=== PATIENT | male | born 1960 | race Caucasian/White ===

== ENCOUNTER 2016-12-21 11:20 | Emergency (ER) | payer SELFPAY ==
[2016-12-21] MEDS ORDERED: 0.9 % SODIUM CHLORIDE 1,000 ML IV ONE (12:12)
[2016-12-21] MEDS: 0.9 % SODIUM CHLORIDE 1,000 ML IV SCH (12:15)
[2016-12-21] MEDS: ONDANSETRON HCL/PF 4 MG/ 2ML VIAL IVP ONE (12:16)
[2016-12-21 12:21] LABS: MEAN CORPUSCULAR HEMOGLOBIN 30.7 pg (28.0-34.0); MEAN CORPUSCULAR VOLUME 92.6 fl (80.0-100.0)
[2016-12-21] MEDS: PANTOPRAZOLE SODIUM 40 MG in 0.9 % SODIUM CHLORIDE 50 ML IV ONE (12:25)
[2016-12-21] MEDS: HYOSCYAMINE SULFATE 0.125 MG TAB.SUBL SL ONE (12:28)
[2016-12-21 12:40] LABS: eGFR (African) > 60; eGFR (Non-African) > 60
[2016-12-21 12:41] LABS: BASOPHILS % 1 % (0-2); EOSINOPHILS % 7 % (0-7); MONOCYTES % 8 % (0-11); SEGMENTED NEUTROPHILS % 42 % (39-79)
[2016-12-21] MEDS: METOCLOPRAMIDE HCL 5 MG TABLET PO ONE (12:46)
[2016-12-21 15:34] VITALS: BP 120/85
--- NOTE | 2016-12-21 16:42 | Diagnostic Imaging Report ---
SKYLAR KEITA [facility] [address] [facility] [address] [place], [place]. [address] Report Submission Date: Dec 21, 2016 2:59:42 PM CDT Patient Study Name: JULIANA REAGAN Date: Dec 21, 2016 2:33:33 PM CDT Modality Type: CT\SR Gender: M Description: CT ABD & PELVIS W/O CO : 62 Institution: [facility] Physician: SKYLAR KEITA Examination: CT Abdomen/pelvis History: Abdominal discomfort Comparison exams: None available Technique: CT Abdomen/pelvis without contrast protocol. Findings: Liver, spleen, adrenal glands, kidneys, pancreas and gallbladder are without irregularity. Kidneys and ureters are without suspicious calcification. Abdominal aorta with mild peripheral atherosclerotic disease. Bowel without abnormal dilation. No evidence for acute mesenteric inflammation or free air. Sigmoid diverticuli. No adjacent inflammation. No gastroesophageal region inflammatory changes. Osseous structures demonstrate degenerative changes. Lung bases without infiltrate. Impression: No evidence for abdominal mass or inflammatory process given technique. No gastroesophageal region inflammation. Sigmoid diverticulosis. No evidence for diverticulitis. Electronically signed on Dec 21, 2016 2:59:42 PM CDT by: Morro CHRISTIANSON
--- NOTE | 2016-12-22 01:22 | ED Physician Documentation ---
General Adult - HISTORIAN Historian: patient - HPI Stated Complaint: Choked on food Chief Complaint: General Adult Additional Information: eating prok sausage and got stuck in distal esophagus Onset: hours (1) Timing: still present Severity: moderate Modifying Factors: happened before Context: eating Quality: very uncomfortable Location: distal esophagus Further Comments: no - ROS CONST: no problems EYES/ENT: none CVS/RESP: denies: chest pain, shortness of breath, cough GI/: abdominal pain, vomiting, other (cannot keep any intake down) MS/SKIN/LYMPH: none NEURO/PSYCH: denies: headache, fainting, dizziness, tingling, numbness, difficulty walking, difficulty with speech, anxiety, depression - PAST HX Past History: none Other History: none Surgeries/Procedures: none Immunizations: referred to PCP Allergies/Adverse Reactions: Allergies Allergy/AdvReac Type Severity Reaction Status Date / Time No Known Allergies Allergy Unverified 12/21/16 11:35 Home Medications: Ambulatory Orders Medication Instructions Recorded Albuterol Sulfate [Albuterol 7 gm IH PRN 08/19/12 Sulfate Hfa] - SOCIAL HX Smoking History: cigarettes Alcohol Use: none Drug Use: none - FAMILY HX Family History: No - VITAL SIGNS Vital Signs: Vital Signs Temp Pulse Resp BP Pulse Ox 98.1 F 82 16 120/85 97 12/21/16 11:28 12/21/16 15:33 12/21/16 15:33 12/21/16 15:33 12/21/16 15:33 - REVIEWED ASSESSMENTS Nursing Assessment Reviewed: Yes Vitals Reviewed: Yes Progress - Results/Orders Results/Orders: cbc, cmp, amylase ordered, ct abdomen ordered - Progress Progress: pt. given 1 liter ns, 40 mg protonix 1vp, 10 mg reglan p.o., 8 mg zofran ivp, 0.25 mg hyoscyamine p.o. in er with resolution of problem Critical Care Note - Critical Care Note Total Time (mins): 0 ED Results Lab/Radiology - Lab Results Lab Results: Lab Results 12/21/16 12/21/16 12:10 12:10 WBC 4.70 K/ul K/ul (4.00-12.00) RBC 5.51 M/ul H M/ul (3.90-5.20) Hgb 16.9 g/dL g/dL (12.0-18.0) Hct 51.0 % % (37.0-53.0) MCV 92.6 fl fl (80.0-100.0) MCH 30.7 pg pg (28.0-34.0) MCHC 33.1 g/dL g/dL (30.0-36.0) RDW 13.8 % % (11.3-14.3) Plt Count 161 K/mm3 K/mm3 (130-400) Seg Neutrophils % 42 % % (39-79) Lymphocytes % 39 % % (16-50) Monocytes % 8 % % (0-11) Eosinophils % 7 % % (0-7) Basophils % 1 % % (0-2) Reactive Lymphocytes 3 % % (0-5) Plt Morphology Comment Normal (NORMAL) RBC Morph Comment Normal (NORMAL) Sodium 145 mmol/L mmol/L (136-145) Potassium 3.9 mmol/L mmol/L (3.5-5.0) Chloride 112 mmol/L H mmol/L (98-110) Carbon Dioxide 29 mmol/L mmol/L (20-32) BUN 8 mg/dL L mg/dL (10-26) Creatinine 0.6 mg/dL mg/dL (0.4-1.5) Estimated Creat Clear 151 Est GFR ( Amer) > 60 (60 - ) Est GFR (Non-Af Amer) > 60 (60 - ) Glucose 80 mg/dL mg/dL (70-99) Calcium 9.5 mg/dL mg/dL (8.5-10.5) Total Bilirubin 0.3 mg/dL mg/dL (0.2-1.2) AST 143 U/L H U/L (0-41) ALT 129 U/L H U/L (0-45) Alkaline Phosphatase 164 U/L H U/L (46-116) Total Protein 7.9 g/dL g/dL (6.0-8.5) Albumin 4.5 g/dL g/dL (3.0-5.5) Amylase 21 U/L U/L (20-104) - Radiology Radiology Impressions: ct abdomen neg for food bolus/distal esophageal blockage - Orders Orders: ED Orders Category Date Time Status Place IV Lock 1T Care 12/21/16 11:[address] ABD & PELVIS W/O CON Routine Exams 12/21/16 11:52 Completed AMYLASE Routine Lab 12/21/16 12:10 Completed CBC/PLATELET/DIFF Routine Lab 12/21/16 12:10 Completed CMP Routine Lab 12/21/16 12:10 Completed 0.9 % Sodium Chloride [Normal Saline] 1,000 ml Med 12/21/16 12:00 Discontinued IV .Q1H 0.9 % Sodium Chloride [Normal Saline] 1,000 ml Med 12/21/16 12:12 Discontinued IV .STK-MED Hyoscyamine Sulfate [Oscimin Sl] Med 12/21/16 11:49 Discontinued 0.25 mg SL 1T ONE Metoclopramide HCl [Reglan] Med 12/21/16 11:48 Discontinued 10 mg PO NOW ONE Ondansetron HCl/Pf [Zofran 4 mg/2 ml] Med 12/21/16 11:48 Discontinued 8 mg IVP NOW ONE Pantoprazole Sodium [Protonix] 40 mg Med 12/21/16 11:51 Discontinued 0.9 % Sodium Chloride [Sodium Chloride] 50 ml IV 1T General Adult Physical Exam - PHYSICAL EXAM GENERAL APPEARANCE: moderate distress EENT: eye inspection normal, ENT inspection normal, pharynx normal, no signs of dehydration, JADE, no nystagmus, TM's nml NECK: normal inspection, thyroid normal, supple RESPIRATORY: no resp distress, chest non-tender CVS: reg rate & rhythm, heart sounds normal, equal pulses, no murmur, no gallop , PMI nml, no JVD ABDOMEN: soft, normal bowel sounds, tenderness (epigastrium) RECTAL: normal exam BACK: normal inspection, no CVA tenderness SKIN: warm/dry, normal color EXTREMITIES: non-tender, normal range of motion, no evidence of injury, no edema NEURO: oriented X3, CN's nml as tested, motor nml, sensation nml, mood/affect nml, cognition normal Discharge Clincal Impression: Hiatal hernia Dysphagia Qualifiers: Dysphagia type: esophageal phase Qualified Code(s): R13.14 - Dysphagia, pharyngoesophageal phase Referrals: Primary Doctor,No [Primary Care Provider] - 2 Days Home Medications: Ambulatory Orders Albuterol Sulfate [Albuterol Sulfate Hfa] 7 gm IH PRN 08/19/12 Condition: Stable Disposition: 01 HOME, SELF-CARE Decision to Admit: NO Decision Time: 15:30
== END 2016-12-21 15:30 | disposition home or self-care (01) ==
LOC: ED 11:20
DX: K44.9 Diaphragmatic hernia without obstruction or gangrene (principal)
CPT/HCPCS: 74176; 80053; 82150; 85025; A9270; J2405; J7030; 96361; 96374; 99283; A9698; S1016

== ENCOUNTER 2017-04-11 16:59 | Emergency (ER) | payer SELFPAY ==
--- NOTE | 2017-04-11 17:08 | ED Physician Documentation ---
General Adult - HISTORIAN Historian: patient - HPI Stated Complaint: fall from ladder Chief Complaint: General Adult Onset: minutes Timing: still present Severity: moderate Further Comments: yes (Pt is a 56 yo male who fell from a ladder from a height of 8 or 10 feet and landed on his feet. Pt is complaining of L ankle pain. Pt has been drinking alcohol. 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)) Other History: other (pt denies other hx) Allergies/Adverse Reactions: Allergies Allergy/AdvReac Type Severity Reaction Status Date / Time No Known Allergies Allergy Unverified 12/21/16 11:35 Home Medications: Ambulatory Orders Medication Instructions Recorded NK [NK] 04/11/17 - SOCIAL HX Smoking History: cigarettes Alcohol Use: other (appears intoxicated) - FAMILY HX Family History: No - VITAL SIGNS Vital Signs: Vital Signs Temp Pulse Resp BP Pulse Ox 120/85 12/21/16 15:33 - REVIEWED ASSESSMENTS Nursing Assessment Reviewed: Yes Vitals Reviewed: Yes Progress - Progress Progress: Banana bag 1 L IVF Posterior splint crutches f/u [facility] or [facility] d/c instructions: Use Crutches. You must avoid weight bearing with you heel fracture. Follow up with an orthopedic doctor at [facility]. Call for next available appointment. and ask for Orthopedic Clinic. Bring the Disk of your x-rays with you when you go. You may take Ibuprofen 200 mg tablets 3 or 4 tablets every 8 hrs for pain and inflammation. Use Tylenol as directed. Keep foot elevated. You may apply ice also. You may get crutches at [facility]. General Adult Physical Exam - PHYSICAL EXAM GENERAL APPEARANCE: moderate distress EENT: pharynx normal, dry mucous membranes NECK: normal inspection, supple RESPIRATORY: no resp distress, chest non-tender, breath sounds normal CVS: reg rate & rhythm, heart sounds normal ABDOMEN: soft, no organomegaly, normal bowel sounds BACK: normal inspection, no CVA tenderness SKIN: warm/dry, normal color EXTREMITIES: other (L ankle/foot tenderness, swelling) NEURO: motor nml, sensation nml, other (intoxicated) Discharge Clincal Impression: Fracture of right calcaneus Qualifiers: Encounter type: initial encounter Calcaneus location: body Fracture type: closed Fracture alignment: nondisplaced Qualified Code(s): S92.014A - Nondisplaced fracture of body of right calcaneus, initial encounter for closed fracture Elevated ETOH level Qualifiers: Blood alcohol level: level not specified Qualified Code(s): R78.0 - Finding of alcohol in blood Referrals: Primary Doctor,No [Primary Care Provider] - Condition: Good Disposition: 01 HOME, SELF-CARE Decision to Admit: NO Decision Time: 19:41
--- NOTE | 2017-04-11 18:14 | Diagnostic Imaging Report ---
RADHA MENCHACA [facility] [address] [facility] [address] [place] [address]. [id number] Report Submission Date: Apr 11, 2017 6:04:44 PM CDT Patient Study Name: JULIANA REAGAN Date: Apr 11, 2017 5:26:06 PM CDT Modality Type: CT\SR Gender: M Description: CT BRAIN W/O CONTRAST : 62 Institution: [facility] Physician: RADHA MENCHACA Examination: CT head without contrast History: Fall Comparison exam: None available Technique: Noncontrast head CT protocol. Findings: Ventricles and sulci are consistent for patient age. Cerebrocerebellar parenchyma demonstrates periventricular low attenuation consistent with small vessel disease. No evidence for parenchymal hemorrhage. No evidence for mass or mass effect. No midline shift. No extra axial fluid collections. Partial visualization of the paranasal sinuses, mastoid air cells, orbits, and scalp without gross regularity. Thinning of the right calvarium suggesting prior surgery. Right ocular implant. Impression: Age related changes. No acute parenchymal process. No hemorrhage. Correlation with older exams recommended if become available. Electronically signed on Apr 11, 2017 6:04:44 PM CDT by: Morro CHRISTIANSON
--- NOTE | 2017-04-11 18:14 | Diagnostic Imaging Report ---
RADHA MENCHACA [facility] [address] [facility] [address] [place] [address]. [address] Report Submission Date: Apr 11, 2017 6:12:15 PM CDT Patient Study Name: JULIANA REAGAN Date: Apr 11, 2017 5:28:52 PM CDT Modality Type: CT\SR Gender: M Description: CT C-SPINE W/O CONTRAS : 62 Institution: [facility] Physician: RADHA MENCHACA Examination: CT cervical spine History: Fall Comparison exams: None provided Technique: CT cervical spine axial imaging with sagittal and coronal reconstruction Findings: Sagittal reconstruction demonstrates normal height and alignment the cervical vertebral bodies. No anterior compression deformity. Anterior, posterior, and lateral osteophytes. Disc space narrowing - most pronounced at the C4/C5 level. Coronal reconstruction does not demonstrate locked or perched facets. Atlantoaxial degenerative changes. Axial imaging obtained from the skull base through T1 Lamina and pedicles are intact. No ossific density within the central canal. Facet degenerative changes. No prevertebral soft tissue abnormality. Impression: Mid cervical degenerative changes. No evidence for vertebral body compression fracture. Electronically signed on Apr 11, 2017 6:12:15 PM CDT by: Morro CHRISTIANSON
--- NOTE | 2017-04-11 18:15 | Diagnostic Imaging Report ---
RADHA MENCHACA [facility] [address] [facility] [address] [address] Report Submission Date: Apr 11, 2017 6:01:37 PM CDT Patient Study Name: JULIANA REAGAN Date: Apr 11, 2017 5:45:48 PM CDT Modality Type: CR Gender: M Description: LOWER EXTREMITY : 62 Institution: [facility] Physician: RADHA MENCHACA Examination: Plain film ankle History: Injury Findings: 3 views of the ankle demonstrates osteopenia. No fracture or dislocation the distal tibia and fibula. Talar dome is intact. Fracture involving the mid calcaneus. Impression: Calcaneal fracture. Electronically signed on Apr 11, 2017 6:01:37 PM CDT by: Morro CHRISTIANSON
[2017-04-11 18:37] LABS: MEAN CORPUSCULAR HEMOGLOBIN 28.8 pg (28.0-34.0); MEAN CORPUSCULAR VOLUME 89.7 fl (80.0-100.0)
[2017-04-11 18:52] LABS: eGFR (African) > 60; eGFR (Non-African) > 60
[2017-04-11 19:02] LABS: EOSINOPHILS % 3 % (0-7); MONOCYTES % 6 % (0-11); SEGMENTED NEUTROPHILS % 41 % (39-79)
[2017-04-11] MEDS ORDERED: 0.9 % SODIUM CHLORIDE 1,000 ML IV ONE (19:05)
[2017-04-11] MEDS: THIAMINE HCL 100 MG, MVI, ADULT NO.1 WITH VIT K 10 ML, FOLIC ACID 5 MG in 0.9 % SODIUM ... IV ONE ×4 (19:05)
[2017-04-11] MEDS ORDERED: FOLIC ACID 5 MG/1 ML ONE (19:05)
[2017-04-11] MEDS ORDERED: THIAMINE HCL 100 MG/ML 2ML VIAL ONE (19:05)
[2017-04-11] MEDS ORDERED: MVI, ADULT NO.1 WITH VIT K 10 ML VIAL IV ONE (19:05)
[2017-04-11 20:42] VITALS: BP 145/86
== END 2017-04-11 20:40 | disposition home or self-care (01) ==
LOC: ED 16:59
DX: S92.014A Nondisplaced fracture of body of right calcaneus, initial encounter for closed fracture (principal); W19.XXXA Unspecified fall, initial encounter; Y93.9 Activity, unspecified; Y99.9 Unspecified external cause status; R78.0 Finding of alcohol in blood
CPT/HCPCS: 70450; 72125; 73610; 80053; 80320; 85025; J3411; J3490; J7030; 36415; 96361; 96374; 99283; G0480

== ENCOUNTER 2018-10-07 13:51 | Emergency (ER) | payer SELFPAY ==
[2018-10-07] MEDS: THIAMINE HCL 100 MG, MULTIVIT INFUSN,ADULT 1,VIT K 10 ML, FOLIC ACID 5 MG in 0.9 % SODI... IV ONE (14:42)
[2018-10-07] MEDS: 0.9 % SODIUM CHLORIDE 1,000 ML IV ONE (14:43)
[2018-10-07] MEDS: THIAMINE HCL 200 MG/2 ML VIAL ONE (14:43)
[2018-10-07] MEDS: MULTIVIT INFUSN,ADULT 1,VIT K 10 ML VIAL IV ONE (14:44)
[2018-10-07] MEDS: FOLIC ACID 5 MG/1 ML ONE (14:44)
--- NOTE | 2018-10-07 14:55 | Diagnostic Imaging Report ---
CHIVO WORTHY ED [facility] [address] [facility] [address] [place], [place]. [address] Report Submission Date: Oct 07, 2018 2:45:52 PM CDT Patient Study Name: JULIANA REAGAN Date: Oct 07, 2018 2:13:49 PM CDT Modality Type: DX Gender: M Description: ABD SERIES PA CHEST : 62 Institution: [facility] Physician: CHIVO WORTHY ED EXAMINATION: ABD SERIES PA CHEST HISTORY: epigastric pain x's 1 week (Hx) COMPARISON: None FINDINGS: There is no focal consolidation, pleural effusion, or pneumothorax. The cardiomediastinal silhouette is normal. There are no abnormally dilated bowel loops. There is diffuse gaseous distention of bowel throughout the abdomen. The visible osseous structures are intact. IMPRESSION: 1. No acute pulmonary process. 2. No evidence of bowel obstruction. Diffuse gaseous distention of bowel throughout the abdomen. Electronically signed on Oct 07, 2018 2:45:52 PM CDT by: Redd CHRISTIANSON
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
[2018-10-07 15:15] LABS: eGFR (Non-African) > 60
[2018-10-07] MEDS: MORPHINE SULFATE 5 MG/ML ML IV ONE (15:15)
[2018-10-07] MEDS: FAMOTIDINE 20 MG/2 ML VIAL IV ONE (15:17)
[2018-10-07 15:23] LABS: MEAN CORPUSCULAR HEMOGLOBIN 29.9 pg (28.0-34.0)
[2018-10-07 15:25] LABS: SEGMENTED NEUTROPHILS % 50 % (39-79)
[2018-10-07] MEDS: ONDANSETRON HCL/PF 4 MG/ 2ML VIAL IVP ONE (15:25)
[2018-10-07 15:26] LABS: BASOPHILS % 9 % (0-2); EOSINOPHILS % 3 % (0-7); MONOCYTES % 11 % (0-11)
[2018-10-07 16:19] LABS: COLOR,URINE AMBER (YELLOW)
[2018-10-07 16:20] LABS: APPEARANCE,URINE CLEAR (CLEAR); OCCULT BLOOD,URINE NEGATIVE (NEGATIVE)
[2018-10-07 16:30] LABS: CANNABINOIDS NON NEGATIVE ng/mL (< 50); METHYLENEDIOXYMETHAMPHETAMINE NEGATIVE ng/mL (<500)
[2018-10-07 16:47] VITALS: BP 155/93
--- NOTE | 2018-10-07 16:49 | Diagnostic Imaging Report ---
CHIVO WORTHY ED [facility] [address] [facility] [address] [place], [place]. [address] Report Submission Date: Oct 07, 2018 4:25:01 PM CDT Patient Study Name: JULIANA REAGAN Date: Oct 07, 2018 3:55:23 PM CDT Modality Type: CT Gender: M Description: CT ABD PELVIS W/ CON : 62 Institution: [facility] Physician: CHIVO WORTHY ED EXAMINATION: CT ABD PELVIS W/ CON HISTORY: EPIGASTRIC PAIN X 5 DAYS, ABNORMAL XRAY RESULTS. 95 ML OMNI 350 IV CONTRAST. (Hx) / ITS.REASON Abd pain x 5 days- N/V/D (DICOM Hx) TECHNIQUE: CT of the abdomen and pelvis was performed with contrast according to standard protocol. COMPARISON: None FINDINGS: The aorta is normal in caliber. The aorta and coronary arteries are atherosclerotic. The visible lung bases are clear. The heart size is normal. The liver enhances homogeneously. The gallbladder appears normal. The intrahepatic and extrahepatic bile ducts are nondilated. The spleen enhances homogeneously. The pancreas and adrenal glands are normal. The kidneys enhance symmetrically. There is no evidence of renal calculus or hydronephrosis. The distal esophagus and stomach appear normal. There is dilated small bowel measuring up to 4 cm. There is gaseous distention of the ascending colon. There is no evidence of pneumatosis. No transition point is identified. The appendix appears normal. No free air or free fluid is identified in the abdomen. There is no abdominal lymphadenopathy. The urinary bladder is nondistended with fluid and appears normal. The prostate appears normal. No free fluid is seen in the pelvis. Bone windows demonstrate no suspicious lytic or blastic lesions. The visible osseous structures are intact. IMPRESSION: 1. Multiple dilated small bowel loops, likely representing a low grade small bowel obstruction or possibly ileus given the absence of an identifiable transition point and the non-decompressed colon. No evidence of pneumatosis or pneumoperitoneum. Electronically signed on Oct 07, 2018 4:25:01 PM CDT by: Redd CHRISTIANSON
== END 2018-10-07 16:45 | disposition left against medical advice (07) ==
LOC: ED 13:51
DX: K56.7 Ileus, unspecified (principal); R11.2 Nausea with vomiting, unspecified
CPT/HCPCS: 36415; 74022; 74177; 80053; 80320; 80377; 81002; 82150; 85025; 96374; 96375; 99285; J2405; J3411; J3490; J7030; Q9967; G0480; G0481; S1016